=== PATIENT | male | born 1985 | race Caucasian/White ===

== ENCOUNTER 2017-01-17 17:39 | Emergency (ER) | payer MEDICARE, OTHER ==
--- NOTE | ~2017-01-17 | CR141 ---
[facility] A Service of [facility] & [facility] RADIOLOGY TEXT RESULTS PATIENT: YAMILET SCOTT LOCATION: CFTX : 83 UNIT #: [id number] AGE: [address]: Carmen Guzman SEX: M ORDER DR: [id number] [facility] [address] [place], [place] [address] [id number] E MR#: [id number] Acc #: [id number] NAME: YAMILET SCOTT. : 1985 SEX: M STUDY DATE/TIME: 01/17/2017 17:18 UNIT: [facility] ROOM: STUDY DESCRIPTION: CR Hand Min 3 Views Lt Attending Physician: Carmen Guzman P.A.-C. Ordering Physician: Carmen Guzman P.A.-C. Primary Care Physician: Lennie Lamar A.P.R.N. MEDICAL IMAGING REPORT This report is preliminary unless electronic signature is present EXAM Hand left 3 views HISTORY Trauma, injured on a grocery cart yesterday with swelling and pain third metacarpal area COMMENT 3 views of the left hand are reviewed FINDINGS No acute fracture, dislocation or radiopaque foreign body. IMPRESSION Negative plain film assessment left hand. Dictated by... Desiree Murray M.D. THIS IS AN ELECTRONICALLY VERIFIED REPORT Desiree Murray M.D. at 01/18/2017 3:09 PM SAC/to TD: 01/18/2017 13:32 JOB #: [id number] MEDICAL IMAGING REPORT Page 1 of 1 COPY
== END 2017-01-17 17:49 | disposition home or self-care (01) ==
LOC: CFTX 17:39
DX: S67.22XA Crushing injury of left hand, initial encounter (principal); Z88.8 Allergy status to other drugs, medicaments and biological substances; W23.1XXA Caught, crushed, jammed, or pinched between stationary objects, initial encounter; Y92.89 Other specified places as the place of occurrence of the external cause
CPT/HCPCS: 29280; 73130; 99283